=== PATIENT | male | born 1935 | race Caucasian/White ===

== ENCOUNTER 2018-01-03 10:28 | Outpatient (CLI) | payer MEDICARE, OTHER ==
--- NOTE | 2018-01-03 13:16 | XRAY Report ---
COMPLETE LUMBAR SPINE: 01/03/2018 CLINICAL INDICATION: Back pain. FINDINGS: AP, lateral, and bilateral oblique views of the lumbar spine demonstrate extensive degenerative disk and facet disease. There is degenerative retrolisthesis of L2 on L3 and L3 on L4. There is no evidence of acute fracture. The bowel gas pattern is normal. Surgical clips from a cholecystectomy are incidentally noted. IMPRESSION: DEGENERATIVE CHANGES. NO EVIDENCE OF FRACTURE. TD: 01/03/2018 13:15
== END 2018-01-03 10:29 | disposition home or self-care (01) ==
LOC: DI.S 10:28
PROVIDERS: ATTEND Internal Medicine
DX: M54.5 Low back pain (principal); M51.36 Other intervertebral disc degeneration, lumbar region
CPT/HCPCS: 72110